=== PATIENT | male | born 1990 | race Asian ===

== ENCOUNTER 2017-11-01 00:39 | Emergency (ER) | payer OTHER ==
[~2017-11-01] VITALS: Ht 172.7 cm; Wt 75.1 kg
[~2017-11-01 00:39] MED LIST: TYLOTC500 PO
[2017-11-01 00:44] VITALS: BP 153/90; PULSE 88; TEMP 36.8; O2SAT 97; Ht 172.7 cm; Wt 75.1 kg
[2017-11-01] MEDS ORDERED: LACT1CAP6 PO (01:09)
[2017-11-01] MEDS ORDERED: [UNRECOGNIZED DRUG - OTHER] PO (01:09)
[2017-11-01] MEDS ORDERED: PRED20TA PO (01:34)
--- NOTE | 2017-11-01 02:32 | EMERGENCY ROOM VISIT NOTE ---
History Report prepared by Romario: Anitra Pappas Under the Supervision of: Dr. Nanda Merritt M.D. First contact with patient: 00:52 Chief Complaint: RASH Stated Complaint: SKIN RASH History of Present Illness The patient is a 27 year old male who presents to the Emergency Room with complaints of a sudden rash starting 2 hours ago. The patient states that he had a soy latte and shortly after the rash started. He states that the rash is very itchy. He reports that he has had a soy latte in the past without this reaction, but notes that it was a few years ago. The patient denies difficulty breathing, throat swelling, difficulty swallowing, cough, fever, and runny nose. He notes that he did not take anything for his symptoms tonight. Source of History: patient Onset: 2 hours ago Position: other (global) Quality: other (itchy) Timing: other (sudden) Associated Symptoms: No fevers, No cough Note: The patient denies difficulty breathing, throat swelling, difficulty swallowing , and runny nose. Review of Systems See HPI for pertinent positives & negatives. A total of 10 systems reviewed and were otherwise negative. Past Medical & Surgical Denies Family History Patient reports no known family medical history. Social History Smoking Status: Never Smoker Marital Status: single Housing Status: lives with roommate Occupation Status: [employer] Current/Historical Medications Scheduled Lactobacillus (Probiotic), 1 CAP PO DAILY Prednisone (Prednisone), 40 MG PO DAILY Scheduled PRN [Antidiarrheal Med], 1 DOSE PO DIRECTED PRN for Diarrhea Allergies Coded Allergies: POLLEN (Verified Allergy, Unknown, ., 11/01/17) Physical Exam Vital Signs Date Time Temp Pulse Resp B/P (MAP) Pulse Ox O2 Delivery O2 Flow Rate FiO2 11/01/17 00:44 36.8 88 18 153/90 97 Room Air Physical Exam Vital signs reviewed. General: Well-appearing, in no significant distress. HEENT: No scleral icterus, PERRLA, neck supple. Atraumatic. Mild periorbital edema. No posterior oropharyngeal edema. Cardiovascular: Regular rate and rhythm, no extra sounds. Pulmonary: Clear to auscultation bilaterally, normal work of breathing. Abdomen: Soft, nontender, nondistended, positive bowel sounds. Musculoskeletal: Atraumatic, no peripheral edema. Neurologic: Patient awake alert and oriented x 3 Skin: Warm, dry, patchy urticaria. Medical Decision & Procedures Medications Administered Medications (Trade) Dose Ordered Sig/Cleo Route Start Time Stop Time Status Last Admin Dose Admin Diphenhydramine HCl (Benadryl Cap) 50 mg NOW ONCE PO 11/01/17 01:30 11/01/17 01:31 DC 11/01/17 01:40 50 MG Prednisone (PredniSONE TAB) 60 mg NOW STAT PO 11/01/17 01:19 11/01/17 01:20 DC 11/01/17 01:40 60 MG ED Course 0115: Past medical records reviewed. The patient was evaluated in room A11B. A complete history and physical examination was performed. I discussed findings with him. He verbalized agreement of the treatment plan. The patient was discharged home. 0119: Ordered Prednisone 60 mg PO. 0130: Ordered Benadryl Cap 50 mg PO. Medical Decision Differential diagnosis: Etiologies such as allergic reaction, anaphylaxis, urticaria, Ramirez-Jose Francisco syndrome, toxic epidermal necrolysis, erythema multiforme, cellulitis, as well as others were entertained. This patient was evaluated and appeared to be in no significant distress. Patient was given 60 mg of oral prednisone as well as 50 mg of Benadryl. He was advised to use Benadryl every 6 hours. A prescription for prednisone 40 mg daily for the next 4 days was sent to the pharmacy. Patient does not appear to be having any anaphylaxis. He suspects this is related to the sore latte. He was advised to avoid soy products and follow-up with his PCP. He may require allergy testing. Patient will return to the ER for worsening of symptoms or any medical concerns. Medication Reconcilliation Current Medication List: was personally reviewed by me Blood Pressure Screening Patient's blood pressure: Elevated blood pressure Blood pressure disposition: Elevated BP felt to be situational Impression Primary Impression: Allergic reaction Scribe Attestation The scribe's documentation has been prepared under my direction and personally reviewed by me in its entirety. I confirm that the note above accurately reflects all work, treatment, procedures, and medical decision making performed by me. Departure Information Dispostion Home / Self-Care Prescriptions Prednisone (Prednisone) 20 Mg Tab 40 MG PO DAILY, #8 TAB Prov: Nanda Merritt M.D. 11/01/17 Referrals [facility] (PCP) Forms HOME CARE DOCUMENTATION FORM, IMPORTANT VISIT INFORMATION, WORK / SCHOOL INSTRUCTIONS Patient Instructions My [facility] Additional Instructions Diagnosis: Allergic reaction Benadryl 25-50 mg every 6 hours as needed for allergic symptoms. Prednisone 40 mg daily for 4 more days, start tomorrow. Avoid soy containing products. Follow-up with your primary care physician or [facility] services for reevaluation. Return to the emergency department for worsening of symptoms or any medical concerns.
== END 2017-11-01 01:49 | disposition home or self-care (01) ==
LOC: C.EDB 00:40 → C.EDA 01:49
DX: T78.40XA Allergy, unspecified, initial encounter (principal); Z91.048 Other nonmedicinal substance allergy status; X58.XXXA Exposure to other specified factors, initial encounter